=== PATIENT | female | born 1960 | race African-American/Black ===

== ENCOUNTER 2016-07-27 11:08 | Inpatient (IN) | payer MEDICARE, MEDICAID ==
--- NOTE | 2016-07-27 11:20 | ER Document Report ---
ED Medical Screen (RME) - General Chief Complaint: Nausea/Vomiting Stated Complaint: VOMITING Mode of Arrival: Wheelchair Information source: Patient Notes: History presents to the emergency department with reports that she just feels awful. History of stroke and heart attack. Patient Pressure low. Escorted back to bed 1. Reports vomiting since 4:00 this morning. I have greeted and performed a rapid initial assessment of this patient. A comprehensive ED assessment and evaluation of the patient, analysis of test results and completion of the medical decision making process will be conducted by additional ED providers. TRAVEL OUTSIDE OF THE [place] IN LAST 30 DAYS: No - Related Data Allergies/Adverse Reactions: No Known Allergies Allergy (Verified 12/12/15 10:19) Past Medical History - Social History Chew tobacco use (# tins/day): No Frequency of alcohol use: None Drug Abuse: None - Past Medical History Cardiac Medical History: Reports: Hx Heart Attack - 2002, Hx Hypercholesterolemia, Hx Hypertension - HX OF Denies: Hx Coronary Artery Disease Pulmonary Medical History: Denies: Hx Asthma, Hx Bronchitis, Hx COPD, Hx Pneumonia, Hx Tuberculosis Neurological Medical History: Reports: Hx Cerebrovascular Accident - 2002. Denies: Hx Seizures Endocrine Medical History: Reports: Hx Diabetes Mellitus Type 2 Renal/ Medical History: Denies: Hx Peritoneal Dialysis Musculoskeltal Medical History: Reports Hx Arthritis Past Surgical History: Reports: Hx Hysterectomy, Hx Kidney (Renal Surgery) - adrenal gland tumor removed - Immunizations Immunizations up to date: Yes Hx Diphtheria, Pertussis, Tetanus Vaccination: Yes Physical Exam - Vital signs Vitals: Temp Pulse BP Pulse Ox 98.4 F 85 73/54 L 96 07/27/16 11:18 07/27/16 11:18 07/27/16 11:18 07/27/16 11:18 Course - Vital Signs Vital signs: Temp Pulse Resp BP Pulse Ox 98.4 F 85 73/54 L 96 07/27/16 11:18 07/27/16 11:18 07/27/16 11:18 07/27/16 11:18
--- NOTE | 2016-07-27 11:25 | ER Document Report ---
ED General - General Chief Complaint: Nausea/Vomiting Stated Complaint: VOMITING Mode of Arrival: Wheelchair Information source: Patient Notes: 56-year-old female history of hypertension who is on clonidine lovastatin presents with complaints of multiple episodes of vomiting yesterday and today. Patient notes she was too weak to walk today. Denies any pain anywhere except for chronic leg cramping denies any shortness breath difficult to breathing TRAVEL OUTSIDE OF THE [place] IN LAST 30 DAYS: No - HPI Onset: Yesterday Onset/Duration: Worse Quality of pain: Achy Severity: Mild Pain Level: 1 Associated symptoms: Body/muscle aches, Vomiting, Weakness Exacerbated by: Denies Relieved by: Denies Similar symptoms previously: No Recently seen / treated by doctor: No - Related Data Allergies/Adverse Reactions: No Known Allergies Allergy (Verified 12/12/15 10:19) Past Medical History - General Information source: Patient - Social History Smoking Status: Never Smoker Cigarette use (# per day): No Chew tobacco use (# tins/day): No Smoking Education Provided: No Frequency of alcohol use: None Drug Abuse: None Family History: Arthritis, CAD, CVA, DM, Hyperlipidemia, Hypertension, Malignancy, Thyroid Disfunction Patient has suicidal ideation: No Patient has homicidal ideation: No - Past Medical History Cardiac Medical History: Reports: Hx Heart Attack - 2002, Hx Hypercholesterolemia, Hx Hypertension - HX OF Denies: Hx Coronary Artery Disease Pulmonary Medical History: Denies: Hx Asthma, Hx Bronchitis, Hx COPD, Hx Pneumonia, Hx Tuberculosis Neurological Medical History: Reports: Hx Cerebrovascular Accident - 2002. Denies: Hx Seizures Endocrine Medical History: Reports: Hx Diabetes Mellitus Type 2 Renal/ Medical History: Denies: Hx Peritoneal Dialysis Musculoskeltal Medical History: Reports Hx Arthritis Past Surgical History: Reports: Hx Hysterectomy, Hx Kidney (Renal Surgery) - adrenal gland tumor removed - Immunizations Immunizations up to date: Yes Hx Diphtheria, Pertussis, Tetanus Vaccination: Yes Hx Pneumococcal Vaccination: 03/02/12 Review of Systems - Review of Systems Notes: REVIEW OF SYSTEMS: CONSTITUTIONAL : Denies fever, chills, or sweats. Denies recent illness. EENT: Denies eye, ear, throat, or mouth pain or symptoms. Denies nasal or sinus congestion or discharge. Denies throat, tongue, or mouth swelling or difficulty swallowing. CARDIOVASCULAR: Denies chest pain. Denies palpitations or racing or irregular heart beat. Denies ankle edema. RESPIRATORY: Denies cough, cold, or chest congestion. Denies shortness of breath, difficulty breathing, or wheezing. GASTROINTESTINAL: Admits nausea vomiting GENITOURINARY: Denies difficulty urinating, painful urination, burning, frequency, blood in urine, or discharge. FEMALE GENITOURINARY: Denies vaginal bleeding, heavy or abnormal periods, irregular periods. Denies vaginal discharge or odor. MUSCULOSKELETAL: Denies back or neck pain or stiffness. Denies joint pain or swelling. SKIN: Denies rash, lesions or sores. HEMATOLOGIC : Denies easy bruising or bleeding. LYMPHATIC: Denies swollen, enlarged glands. NEUROLOGICAL: Admits to weakness PSYCHIATRIC: Denies anxiety or stress. Denies depression, suicidal ideation, or homicidal ideation. ALL OTHER SYSTEMS REVIEWED AND NEGATIVE. Dictation was performed using [employer] voice recognition software PHYSICAL EXAMINATION: GENERAL: Thin appearing female appears exhausted HEAD: Atraumatic, normocephalic. EYES: Pupils equal round and reactive to light, extraocular movements intact, conjunctiva are normal. ENT: Nares patent, oropharynx clear without exudates. Moist mucous membranes. NECK: Normal range of motion, supple without lymphadenopathy LUNGS: Breath sounds clear to auscultation bilaterally and equal. No wheezes rales or rhonchi. HEART: Regular rate and rhythm without murmurs ABDOMEN: Soft, nontender, nondistended abdomen. No guarding, no rebound. No masses appreciated. Female : deferred Musculoskeletal: Normal range of motion, no pitting or edema. No cyanosis. NEUROLOGICAL: Cranial nerves grossly intact. Normal speech, normal gait. Normal sensory, motor exams PSYCH: Normal mood, normal affect. SKIN: Warm, Dry, normal turgor, no rashes or lesions noted. Physical Exam - Vital signs Vitals: Temp Pulse BP Pulse Ox 98.4 F 85 73/54 L 96 07/27/16 11:18 07/27/16 11:18 07/27/16 11:18 07/27/16 11:18 Course - Re-evaluation Re-evalutation: 07/27/16 11:24 Patient is noted to be quite hypotensive on arrival septic workup pending fluid boluses have been ordered 07/27/16 11:31 Patient desats 86%, chest x-ray pending 07/27/16 13:24 Pt noted to have uti, rocephin started pts bp has improved will admit to [facility] - Vital Signs Vital signs: Temp Pulse Resp BP Pulse Ox 98.4 F 85 16 118/73 100 07/27/16 11:18 07/27/16 11:18 07/27/16 12:45 07/27/16 12:45 07/27/16 12:45 - Laboratory Result Diagrams: 07/27/16 11:38 07/27/16 11:38 Laboratory results interpreted by me: 07/27/16 07/27/16 07/27/16 11:38 11:38 11:38 Hgb 11.0 L Hct 33.6 L RDW 15.2 H D-Dimer 0.89 H Potassium 3.1 L Est GFR (Non-Af Amer) 50 L POC Glucose Urine Protein Urine Urobilinogen Ur Leukocyte Esterase 07/27/16 07/27/16 11:50 12:07 Hgb Hct RDW D-Dimer Potassium Est GFR (Non-Af Amer) POC Glucose 56 L Urine Protein 30 H Urine Urobilinogen 2.0 H Ur Leukocyte Esterase MODERATE H - Diagnostic Test Radiology reviewed: Image reviewed, Reports reviewed - EKG Interpretation by Me EKG shows normal: Sinus rhythm, [place], Intervals, QRS Complexes Critical Care Note - Critical Care Note Total time excluding time spent on procedures (mins): 37 Comments: 37 minutes of critical care time spent in direct contact evaluating and reevaluating the patient, treating symptoms, reviewing labs and studies and speaking with family and consultants excluding any procedures Discharge - Discharge Clinical Impression: Weakness UTI (urinary tract infection) Qualifiers: Urinary tract infection type: acute cystitis Hematuria presence: without hematuria Qualified Code(s): N30.00 - Acute cystitis without hematuria Hypotension Qualifiers: Hypotension type: unspecified hypotension type Qualified Code(s): I95.9 - Hypotension, unspecified Condition: Fair Disposition: ADMITTED INPATIENT Admitting Provider: [facility] Unit Admitted: Telemetry
[2016-07-27] MEDS ORDERED: ONDANSETRON HCL INJ/PF 4 MG/2 ML SDV IV ONE (11:54)
[2016-07-27 12:02] LABS: ABSOLUTE EOSINOPHILS # (AUTO) 0.1 10^3/uL (0.0-0.6); ABSOLUTE LYMPHOCYTES (AUTO) 2.1 10^3/uL (0.5-4.7); ABSOLUTE MONOCYTES (AUTO) 0.6 10^3/uL (0.1-1.4); ABSOLUTE NEUT (AUTO) 4.8 10^3/uL (1.7-8.2); BASOPHILS % (AUTO) 0.3 % (0-2); EOSINOPHILS % (AUTO) 1.3 % (0-6); HEMATOCRIT 33.6 % (36.0-47.0); HGB HCT DIFFERENCE -0.6; LYMPHOCYTES % (AUTO) 27.4 % (13-45); MEAN CORPUSCULAR HEMOGLOBIN 27.6 pg (27.0-33.4); MEAN CORPUSCULAR HGB CONC 32.8 g/dL (32.0-36.0); MEAN CORPUSCULAR VOLUME 84 fl (80-97); MONOCYTES % (AUTO) 7.5 % (3-13); RED BLOOD COUNT 3.98 10^6/uL (3.72-5.28); RED CELL DISTRIBUTION WIDTH 15.2 % (11.5-14.0); SEGMENTED NEUTROPHILS % (AUTO) 63.5 % (42-78); WHITE BLOOD COUNT 7.6 10^3/uL (4.0-10.5)
[2016-07-27] MEDS: NORMAL SALINE 1000 ML 1,000 ML IV PRN ×2 (12:03→12:04)
[2016-07-27 12:04] LABS: VENOUS BLOOD BASE EXCESS 1.9 mmol/L; VENOUS BLOOD HCO3 27.6 mmol/L (20-32); VENOUS BLOOD PCO2 47.2 mmHg (35-63); VENOUS BLOOD PH 7.39 (7.30-7.42)
[2016-07-27] MEDS ORDERED: DEXTROSE 50%-WATER 25 GM/50 ML DISP.SYRIN IV ONE ×2 (12:08→15:26)
[2016-07-27 12:15] LABS: APPEARANCE,URINE CLOUDY; BILIRUBIN,URINE NEGATIVE (NEGATIVE); GLUCOSE, URINE NEGATIVE (NEGATIVE); KETONES,URINE NEGATIVE (NEGATIVE); LEUKOCYTE ESTERASE,URINE MODERATE (NEGATIVE); NITRITE,URINE NEGATIVE (NEGATIVE); PROTEIN,URINE 30 mg/dL (NEGATIVE); URINE SPECIFIC GRAVITY 1.011
[2016-07-27] MEDS ORDERED: CEFTRIAXONE 1 GM/D5W RTU 50 ML IV ONE (12:17)
[2016-07-27 12:22] LABS: ALANINE AMINOTRANSFERASE 19 U/L (9-52); ALBUMIN 3.6 g/dL (3.5-5.0); ALKALINE PHOSPHATASE 65 U/L (38-126); ANION GAP 14 (5-19); ASPARTATE AMINO TRANSFERASE 21 U/L (14-36); BILIRUBIN,TOTAL 0.9 mg/dL (0.2-1.3); BLOOD UREA NITROGEN 13 mg/dL (7-20); CALCIUM 9.5 mg/dL (8.4-10.2); CARBON DIOXIDE 24 mmol/L (22-30); CHLORIDE 107 mmol/L (98-107); CREATINE KINASE 51 U/L (30-135); CREATININE RESULT 1.13 mg/dL (0.52-1.25); GLUCOSE 89 mg/dL (75-110); POTASSIUM 3.1 mmol/L (3.6-5.0); SODIUM 144.5 mmol/L (137-145); TOTAL PROTEIN 6.8 g/dL (6.3-8.2)
[2016-07-27 12:34] LABS: CREATINE KINASE MB < 0.22 ng/mL (<4.55); TROPONIN I < 0.012 ng/mL
[2016-07-27] MEDS ORDERED: POTASSIUM CHLORIDE 10 MEQ TABLET.SA PO ONE (13:27)
[2016-07-27] MEDS ORDERED: IPRATROPIUM/ALBUTEROL 0.5-2.5 MG/3 ML AMPUL NEB PRN (15:49)
[2016-07-27] MEDS ORDERED: NORMAL SALINE 1000 ML 1,000 ML IV PRN (15:49)
[2016-07-27] MEDS ORDERED: ONDANSETRON HCL INJ/PF 4 MG/2 ML SDV IV PRN (15:49)
[2016-07-27] MEDS ORDERED: HYDROCODONE/ACETAMINOPHEN 5-325 MG TABLET PO PRN (15:55)
[2016-07-27] MEDS ORDERED: (PENDING PHARMACY ID) (Zolpidem Tartrate [Ambien] 10 MG) PO PRN (15:55)
--- NOTE | 2016-07-27 17:34 | PDOC H&P ---
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 angiogram was also negative. Patient's potassium was low but the sodium was okay and patient's cortisol level was okay to. Patient's have at this ongoing issue with this hypotension and weakness may be a concern about some [place] crisis but patient' s potassium is low history of high and patient's sodium is okay. His blood sugar was also running low. Patient's also possible urinary tract infections which also contributed about symptoms. Patient's otherwise remains stable when I saw in the floor denied any chest pain no shortness of the breath no abdominal pain no nausea no vomiting. Past Medical History Cardiac Medical History: Reports: Myocardial Infarction - 2002, Hyperlipidema, Hypertension - HX OF Denies: Coronary Artery Disease Pulmonary Medical History: Denies: Asthma, Bronchitis, Chronic Obstructive Pulmonary Disease (COPD), Pneumonia, Tuberculosis Neurological Medical History: Denies: Seizures Endocrine Medical History: Reports: Diabetes Mellitus Type 2, Other Endocrine History Note: jason syndrome and currently on a prednisone and see the entry level automotive technician [employer] [facility] Medical History: Reports: Gastroesophageal Reflux Disease Musculoskeltal Medical History: Reports: Arthritis, Other - History of the lupus and currently see the rheumatology Hematology: Reports: Anemia Past Surgical History Past Surgical History: Reports: Hysterectomy, Other - Right-sided adrenal gland Social History Smoking Status: Never Smoker Frequency of Alcohol Use: None Hx Recreational Drug Use: No Hx Prescription Drug Abuse: No Family History Family History: Reviewed & Not Pertinent, Arthritis, CAD, CVA, DM, Hyperlipidemia, Hypertension, Malignancy, Thyroid Disfunction Parental Family History Reviewed: Yes Children Family History Reviewed: Yes Sibling(s) Family History Reviewed.: Yes Medication/Allergy Home Medications: Atorvastatin Calcium [Lipitor 10 mg Tablet] 10 mg PO DAILY 07/27/16 Clonidine HCl [Catapres 0.1 mg Tablet] 0.1 mg PO QHS 07/27/16 Hydrocodone/Acetaminophen [[place] 5-325 mg Tablet] 1 tab PO BIDP PRN 07/27/16 Prednisone [Deltasone 5 mg Tablet] 5 mg PO QAM 07/27/16 Pregabalin [Lyrica] 50 mg PO TID 07/27/16 Zolpidem Tartrate [Ambien] 10 mg PO HSP PRN 07/27/16 Allergies/Adverse Reactions: No Known Allergies Allergy (Verified 12/12/15 10:19) Review of Systems Constitutional: PRESENT: fatigue, weakness Eyes: ABSENT: as per HPI, visual disturbances, other Nose, Mouth, and Throat: ABSENT: as per HPI, headache(s), mouth pain, sore throat, vertigo, other Cardiovascular: ABSENT: as per HPI, chest pain, dyspnea on exertion, edema, orthropnea, palpitations, other Respiratory: ABSENT: as per HPI, cough, dyspnea, hemoptysis, sputum, other Gastrointestinal: ABSENT: as per HPI, abdominal pain, bloating, coffee ground emesis, constipation, diarrhea, dysphagia, heartburn, hematemesis, hematochezia , melena, nausea, vomiting, other Genitourinary: ABSENT: as per HPI, difficulty urinating, dysuria, hematuria, nocturia, other Musculoskeletal: PRESENT: muscle weakness Integumentary: ABSENT: as per HPI, diaphoresis, erythema, lesions, pruritus, rash, wounds, other Neurological: PRESENT: weakness Psychiatric: PRESENT: depression Physical Exam Vital Signs: Temp Pulse Resp BP Pulse Ox 99.0 F 100 13 132/97 H 97 07/27/16 16:09 07/27/16 16:09 07/27/16 16:09 07/27/16 16:09 07/27/16 16:09 Intake & Output 07/26/16 07/27/16 07/28/16 06:59 06:59 06:59 Weight 63.4 kg General appearance: PRESENT: no acute distress, well-developed, well-nourished Head exam: PRESENT: atraumatic, normocephalic Eye exam: PRESENT: conjunctiva pink, EOMI, PERRLA. ABSENT: scleral icterus Ear exam: PRESENT: normal external ear exam Mouth exam: PRESENT: moist, tongue midline Neck exam: PRESENT: full ROM. ABSENT: carotid bruit, JVD, lymphadenopathy, thyromegaly Respiratory exam: PRESENT: clear to auscultation sam Cardiovascular exam: PRESENT: RRR. ABSENT: diastolic murmur, rubs, systolic murmur Pulses: PRESENT: normal dorsalis pedis pul, +2 pedal pulses bilateral Vascular exam: PRESENT: normal capillary refill GI/Abdominal exam: PRESENT: normal bowel sounds, soft. ABSENT: distended, guarding, mass, organolmegaly, rebound, tenderness Rectal exam: PRESENT: deferred Neurological exam: PRESENT: alert, awake, oriented to person, oriented to place , oriented to time, oriented to situation, CN II-XII grossly intact. ABSENT: motor sensory deficit Psychiatric exam: PRESENT: appropriate affect, normal mood. ABSENT: homicidal ideation, suicidal ideation Skin exam: PRESENT: dry, intact, warm. ABSENT: cyanosis, rash Results Impressions: Chest X-Ray 07/27/16 11:16 IMPRESSION: NO ACUTE RADIOGRAPHIC FINDING IN THE CHEST. Chest/Abdomen CTA 07/27/16 12:15 IMPRESSION: 1. No PE. 2. Chronic interstitial lung disease. Small ground-glass nodules which will need serial followup. Assessment & Plan - Diagnosis (1) Weakness Is this a current diagnosis for this admission?: YesPlan: Possible underlying sepsis with some hormonal issues. Will get the cortisone level and start the patient on hydrocortisone IV and also get the ACTH L also start IV antibiotic and IV fluid and hold the statin (2) Hypotension Qualifiers: Hypotension type: unspecified hypotension type Qualified Code(s): I95.9 - Hypotension, unspecified Is this a current diagnosis for this admission?: YesPlan: Possible underlying infections versus adrenal gland issue. 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 and status post the steroid supplement with start the patient on hydrocortisone and fludrocortisone (5) Systemic lupus erythematosus Is this a current diagnosis for this admission?: YesPlan: Patient used to take the medicines for the lupus but according to the patient she is not taking right now (6) Coronary artery disease Qualifiers: Coronary Disease-Associated Artery/Lesion type: unspecified vessel or lesion type Is this a current diagnosis for this admission?: YesPlan: We did the cardiac enzymes every 63 (7) UTI (urinary tract infection) Qualifiers: Urinary tract infection type: acute cystitis Hematuria presence: without hematuria Qualified Code(s): N30.00 - Acute cystitis without hematuria Is this a current diagnosis for this admission?: YesPlan: The patient on IV antibiotic (8) Sleep apnea Qualifiers: Sleep apnea type: unspecified type Qualified Code(s): G47.30 - Sleep apnea, unspecified Is this a current diagnosis for this admission?: YesPlan: Currently on a C-pap - Time Time Spent: 50 to 70 Minutes Medications reviewed and adjusted accordingly: Yes Anticipated discharge: Home Within: Other - Inpatient Certification Medical Necessity: Significant Comorbidiites Make Outpatient Treatment Too Risky , Need For IV Fluids, Need for IV Antibiotics - Plan Summary Plan Summary: The base on the patient's current symptoms and is sign most likely patient has some adrenal issue . Will supplement the hormones and to the underlying infections and IV fluid
[2016-07-27] MEDS: POTASSI CL 20 MEQ/D5-1/2NS 1L 1000 ML IV PRN (18:20)
[2016-07-27] MEDS: ACETAMINOPHEN 325 MG TABLET PO PRN (18:21)
[2016-07-27] MEDS ORDERED: FLUDROCORTISONE ACETATE 0.1 MG TABLET PO ONE (18:45)
[2016-07-27 19:19] LABS: CREATINE KINASE MB < 0.22 ng/mL (<4.55); TROPONIN I < 0.012 ng/mL
--- NOTE | 2016-07-27 19:29 | EKG REPORT ---
SEVERITY:- ABNORMAL ECG - SINUS RHYTHM ABNORMAL T, CONSIDER ISCHEMIA, LATERAL LEADS : Confirmed by: Lucinda Ma MD 27-Jul-2016 19:28:39
[2016-07-27] MEDS: HYDROCORTISONE SOD SUCCINATE INJ/PF 100 MG/2 ML SDV IV SCH (21:56)
[2016-07-27] MEDS: FAMOTIDINE 20 MG TABLET PO SCH (21:56)
[2016-07-27] MEDS: CEFEPIME 1 GM/D5W RTU 50 ML IV SCH (21:56)
[2016-07-27] MEDS: PREGABALIN 50 MG CAPSULE PO SCH (21:56)
[2016-07-28 00:37] LABS: CREATINE KINASE MB < 0.22 ng/mL (<4.55); TROPONIN I < 0.012 ng/mL
[2016-07-28] MEDS: POTASSI CL 20 MEQ/D5-1/2NS 1L 1000 ML IV PRN (02:38)
[2016-07-28] MEDS: PREGABALIN 50 MG CAPSULE PO SCH ×3 (05:21→21:16)
[2016-07-28] MEDS: HYDROCORTISONE SOD SUCCINATE INJ/PF 100 MG/2 ML SDV IV SCH ×3 (05:21→21:16)
[2016-07-28 08:16] LABS: ABSOLUTE LYMPHOCYTES (AUTO) 0.6 10^3/uL (0.5-4.7); ABSOLUTE MONOCYTES (AUTO) 0.1 10^3/uL (0.1-1.4); ABSOLUTE NEUT (AUTO) 3.2 10^3/uL (1.7-8.2); BASOPHILS % (AUTO) 0.2 % (0-2); HEMATOCRIT 35.2 % (36.0-47.0); HEMOGLOBIN 11.7 g/dL (12.0-15.5); HGB HCT DIFFERENCE -0.1; LYMPHOCYTES % (AUTO) 14.6 % (13-45); MEAN CORPUSCULAR HGB CONC 33.1 g/dL (32.0-36.0); MEAN CORPUSCULAR VOLUME 85 fl (80-97); MONOCYTES % (AUTO) 1.4 % (3-13); RED BLOOD COUNT 4.16 10^6/uL (3.72-5.28); RED CELL DISTRIBUTION WIDTH 15.2 % (11.5-14.0); SEGMENTED NEUTROPHILS % (AUTO) 83.8 % (42-78); WHITE BLOOD COUNT 3.8 10^3/uL (4.0-10.5)
[2016-07-28 08:36] LABS: ANION GAP 9 (5-19); BLOOD UREA NITROGEN 11 mg/dL (7-20); CALCIUM 9.6 mg/dL (8.4-10.2); CARBON DIOXIDE 22 mmol/L (22-30); CHLORIDE 111 mmol/L (98-107); CREATINE KINASE 46 U/L (30-135); CREATININE RESULT 0.88 mg/dL (0.52-1.25); GLUCOSE 168 mg/dL (75-110); MAGNESIUM 1.7 mg/dL (1.6-2.3); SODIUM 141.9 mmol/L (137-145)
[2016-07-28 08:51] LABS: CREATINE KINASE MB < 0.22 ng/mL (<4.55); POTASSIUM 4.5 mmol/L (3.6-5.0); TROPONIN I < 0.012 ng/mL
[2016-07-28] MEDS ORDERED: FLUDROCORTISONE ACETATE 0.1 MG TABLET PO SCH (10:00)
[2016-07-28] MEDS: CEFEPIME 1 GM/D5W RTU 50 ML IV SCH ×2 (10:13→21:15)
[2016-07-28] MEDS: ENOXAPARIN SODIUM INJ 40 MG/0.4 ML DISP.SYRIN SUBCUT SCH (10:15)
[2016-07-28] MEDS: FAMOTIDINE 20 MG TABLET PO SCH ×2 (10:15→21:16)
[2016-07-28] MEDS: DEXTROSE 5%-1/2 NORMAL SALINE 1,000 ML IV PRN (10:51)
--- NOTE | 2016-07-28 10:51 | PDOC PROGRESS REPORT ---
Subjective Progress Note for:: 07/28/16 Subjective:: Patient is doing fair still weakness in the both legs. Patient's MRI was negative for any acute finding except some meningioma. Patient's also put on hydrocortisone and fludrocortisone and currently doing fair. Patient's ACTH is still pending. urine so the gram-negative rods. Also see the pain management and patient's currently on hydrocortisone analytical for the neuropathy and the leg pain. Patient's denied any chest pain no shortness of the breath. Patient' s blood processes remained stable Physical Exam Vital Signs: Temp Pulse Resp BP Pulse Ox 97.6 F 71 14 114/77 98 07/28/16 07:05 07/28/16 09:10 07/28/16 09:10 07/28/16 07:05 07/28/16 09:10 Intake & Output 07/27/16 07/28/16 07/29/16 06:59 06:59 06:59 Intake Total 2327 Output Total 650 Balance 1677 Weight 65.9 kg General appearance: PRESENT: no acute distress, well-developed, well-nourished Head exam: PRESENT: atraumatic, normocephalic Eye exam: PRESENT: conjunctiva pink, EOMI, PERRLA. ABSENT: scleral icterus Ear exam: PRESENT: normal external ear exam Mouth exam: PRESENT: moist, tongue midline Neck exam: PRESENT: full ROM. ABSENT: carotid bruit, JVD, lymphadenopathy, thyromegaly Respiratory exam: PRESENT: clear to auscultation sam Cardiovascular exam: PRESENT: RRR. ABSENT: diastolic murmur, rubs, systolic murmur Pulses: PRESENT: normal dorsalis pedis pul, +2 pedal pulses bilateral Vascular exam: PRESENT: normal capillary refill GI/Abdominal exam: PRESENT: normal bowel sounds, soft. ABSENT: distended, guarding, mass, organolmegaly, rebound, tenderness Rectal exam: PRESENT: deferred Neurological exam: PRESENT: alert, awake, oriented to person, oriented to place , oriented to time, oriented to situation, CN II-XII grossly intact. ABSENT: motor sensory deficit Psychiatric exam: PRESENT: appropriate affect, normal mood. ABSENT: homicidal ideation, suicidal ideation Skin exam: PRESENT: dry, intact, warm. ABSENT: cyanosis, rash Results Laboratory Results: 07/28/16 08:07 07/28/16 08:07 07/28/16 07/28/16 08:07 08:07 WBC 3.8 L RBC 4.16 Hgb 11.7 L Hct 35.2 L MCV 85 MCH 28.0 MCHC 33.1 RDW 15.2 H Plt Count 143 L Seg Neutrophils % 83.8 H Lymphocytes % 14.6 Monocytes % 1.4 L Eosinophils % 0.0 Basophils % 0.2 Absolute Neutrophils 3.2 Absolute Lymphocytes 0.6 Absolute Monocytes 0.1 Absolute Eosinophils 0.0 Absolute Basophils 0.0 Sodium 141.9 Potassium 4.5 D Chloride 111 H Carbon Dioxide 22 Anion Gap 9 BUN 11 Creatinine 0.88 Est GFR ( Amer) > 60 Est GFR (Non-Af Amer) > 60 Glucose 168 H Calcium 9.6 Magnesium 1.7 07/27/16 07/27/16 07/27/16 18:32 18:32 23:55 Creatine Kinase 49 45 CK-MB (CK-2) < 0.22 Troponin I < 0.012 07/27/16 07/28/16 07/28/16 23:55 08:07 08:07 Creatine Kinase 46 CK-MB (CK-2) < 0.22 < 0.22 Troponin I < 0.012 < 0.012 Impressions: Head CT 07/27/16 00:00 IMPRESSION: Findings most consistent with a small meningioma in the right parietal region as noted above. Followup brain CT scan with IV contrast or MRI may be of value for further evaluation. No other significant intracranial abnormalities were identified. Other findings as noted above Head MRI 07/27/16 00:00 IMPRESSION: MINIMAL MICROVASCULAR ISCHEMIC CHANGE. The previously described small dural based mass in the right parietal region is again identified and is most consistent with a small meningioma. Additional sequence post contrast may be of value for confirmation. Other findings as noted above. Chest X-Ray 07/27/16 11:16 IMPRESSION: NO ACUTE RADIOGRAPHIC FINDING IN THE CHEST. Chest/Abdomen CTA 07/27/16 12:15 IMPRESSION: 1. No PE. 2. Chronic interstitial lung disease. Small ground-glass nodules which will need serial followup. Assessment & Plan - Diagnosis (1) Weakness Is this a current diagnosis for this admission?: YesPlan: Patient is currently doing fair to good the physical therapy evaluations continues the current medications. (2) Hypotension Qualifiers: Hypotension type: unspecified hypotension type Qualified Code(s): I95.9 - Hypotension, unspecified Is this a current diagnosis for this admission?: YesPlan: Is currently IV fluid (3) Type II diabetes mellitus Qualifiers: Diabetes mellitus complication status: with unspecified complications Is this a current diagnosis for this admission?: YesPlan: Continues to check before meals and at bedtime currently low will give her D5 1 half normal saline (4) Jason syndrome Plan: Status post adrenal surgery and currently on the steroid supplement (5) Systemic lupus erythematosus Is this a current diagnosis for this admission?: YesPlan: Patient used to take the medicines for the lupus but according to the patient she is not taking right now (6) Coronary artery disease Qualifiers: Coronary Disease-Associated Artery/Lesion type: unspecified vessel or lesion type Is this a current diagnosis for this admission?: YesPlan: We did the cardiac enzymes every 63 (7) UTI (urinary tract infection) Qualifiers: Urinary tract infection type: acute cystitis Hematuria presence: without hematuria Qualified Code(s): N30.00 - Acute cystitis without hematuria Is this a current diagnosis for this admission?: YesPlan: And continues IV antibiotic and wait for the culture and sensitivity (8) Sleep apnea Qualifiers: Sleep apnea type: unspecified type Qualified Code(s): G47.30 - Sleep apnea, unspecified Is this a current diagnosis for this admission?: YesPlan: After the losing the weight patient does not need a C-pap machines anymore - Time Time Spent with patient: 15-24 minutes Medications reviewed and adjusted accordingly: Yes Anticipated discharge: Home Within: Other - Inpatient Certification Medical Necessity: Need For IV Fluids, Need for IV Antibiotics Post Hospital Care: D/C Lathe [place] Documentation - Plan Summary Plan Summary: Continues to IV antibiotic continuous IV fluid and the physical therapy and discussed with the patient and the her daughter about the or the test results and follow-up
[2016-07-28] MEDS: ZOLPIDEM TARTRATE 5 MG TABLET PO PRN (21:19)
[2016-07-29] MEDS: DEXTROSE 5%-1/2 NORMAL SALINE 1,000 ML IV PRN ×3 (02:45→21:59)
[2016-07-29] MEDS: PREGABALIN 50 MG CAPSULE PO SCH ×3 (05:48→22:44)
[2016-07-29] MEDS: HYDROCORTISONE SOD SUCCINATE INJ/PF 100 MG/2 ML SDV IV SCH (05:49)
[2016-07-29 06:13] LABS: ABSOLUTE LYMPHOCYTES (AUTO) 0.9 10^3/uL (0.5-4.7); ABSOLUTE MONOCYTES (AUTO) 0.3 10^3/uL (0.1-1.4); ABSOLUTE NEUT (AUTO) 5.1 10^3/uL (1.7-8.2); BASOPHILS % (AUTO) 0.1 % (0-2); HEMATOCRIT 34.5 % (36.0-47.0); HEMOGLOBIN 11.5 g/dL (12.0-15.5); LYMPHOCYTES % (AUTO) 14.9 % (13-45); MEAN CORPUSCULAR HEMOGLOBIN 27.9 pg (27.0-33.4); MEAN CORPUSCULAR HGB CONC 33.4 g/dL (32.0-36.0); MEAN CORPUSCULAR VOLUME 84 fl (80-97); MONOCYTES % (AUTO) 4.1 % (3-13); RED BLOOD COUNT 4.12 10^6/uL (3.72-5.28); RED CELL DISTRIBUTION WIDTH 15.2 % (11.5-14.0); SEGMENTED NEUTROPHILS % (AUTO) 80.9 % (42-78); WHITE BLOOD COUNT 6.2 10^3/uL (4.0-10.5)
[2016-07-29 06:26] LABS: ANION GAP 13 (5-19); BLOOD UREA NITROGEN 20 mg/dL (7-20); CALCIUM 9.9 mg/dL (8.4-10.2); CARBON DIOXIDE 22 mmol/L (22-30); CHLORIDE 110 mmol/L (98-107); CREATININE RESULT 1.03 mg/dL (0.52-1.25); GLUCOSE 125 mg/dL (75-110); MAGNESIUM 1.8 mg/dL (1.6-2.3); POTASSIUM 3.6 mmol/L (3.6-5.0); SODIUM 145.3 mmol/L (137-145)
[2016-07-29] MEDS: CEFEPIME 1 GM/D5W RTU 50 ML IV SCH ×2 (10:36→21:58)
[2016-07-29] MEDS: FAMOTIDINE 20 MG TABLET PO SCH ×2 (10:36→22:44)
[2016-07-29] MEDS: ENOXAPARIN SODIUM INJ 40 MG/0.4 ML DISP.SYRIN SUBCUT SCH (10:37)
[2016-07-29] MEDS ORDERED: CLONIDINE HCL 0.1 MG TABLET PO ONE (14:30)
[2016-07-29] MEDS: PREDNISONE 10 MG TABLET PO SCH (17:52)
--- NOTE | 2016-07-29 17:56 | PDOC PROGRESS REPORT ---
Subjective Progress Note for:: 07/29/16 Subjective:: Patient is feeling much better still have a weakness patient's blood pressures actually go up and patient urine cultures grew out the bacteria. Patient's denied any chest pain no shortness of the breath no abdominal pain Physical Exam Vital Signs: Temp Pulse Resp BP Pulse Ox 98.0 F 64 19 127/78 H 97 07/29/16 15:21 07/29/16 15:21 07/29/16 15:21 07/29/16 15:21 07/29/16 15:21 Intake & Output 07/28/16 07/29/16 07/30/16 06:59 06:59 06:59 Intake Total 2327 2982 468 Output Total 650 3350 1400 Balance 8083 -019 -842 Weight 65.9 kg 65.2 kg General appearance: PRESENT: no acute distress, well-developed, well-nourished Head exam: PRESENT: atraumatic, normocephalic Eye exam: PRESENT: conjunctiva pink, EOMI, PERRLA. ABSENT: scleral icterus Ear exam: PRESENT: normal external ear exam Mouth exam: PRESENT: moist, tongue midline Neck exam: PRESENT: full ROM. ABSENT: carotid bruit, JVD, lymphadenopathy, thyromegaly Respiratory exam: PRESENT: clear to auscultation sam Cardiovascular exam: PRESENT: RRR. ABSENT: diastolic murmur, rubs, systolic murmur Pulses: PRESENT: normal dorsalis pedis pul, +2 pedal pulses bilateral Vascular exam: PRESENT: normal capillary refill GI/Abdominal exam: PRESENT: normal bowel sounds, soft. ABSENT: distended, guarding, mass, organolmegaly, rebound, tenderness Rectal exam: PRESENT: deferred Neurological exam: PRESENT: alert, awake, oriented to person, oriented to place , oriented to time, oriented to situation, CN II-XII grossly intact. ABSENT: motor sensory deficit Psychiatric exam: PRESENT: appropriate affect, normal mood. ABSENT: homicidal ideation, suicidal ideation Skin exam: PRESENT: dry, intact, warm. ABSENT: cyanosis, rash Results Laboratory Results: 07/29/16 05:20 07/29/16 05:20 07/29/16 07/29/16 05:20 05:20 WBC 6.2 RBC 4.12 Hgb 11.5 L Hct 34.5 L MCV 84 MCH 27.9 MCHC 33.4 RDW 15.2 H Plt Count 148 L Seg Neutrophils % 80.9 H Lymphocytes % 14.9 Monocytes % 4.1 Eosinophils % 0.0 Basophils % 0.1 Absolute Neutrophils 5.1 Absolute Lymphocytes 0.9 Absolute Monocytes 0.3 Absolute Eosinophils 0.0 Absolute Basophils 0.0 Sodium 145.3 H Potassium 3.6 Chloride 110 H Carbon Dioxide 22 Anion Gap 13 BUN 20 Creatinine 1.03 Est GFR ( Amer) > 60 Est GFR (Non-Af Amer) 55 L Glucose 125 H Calcium 9.9 Magnesium 1.8 07/27/16 07/27/16 07/27/16 18:32 18:32 23:55 Creatine Kinase 49 45 CK-MB (CK-2) < 0.22 Troponin I < 0.012 07/27/16 07/28/16 07/28/16 23:55 08:07 08:07 Creatine Kinase 46 CK-MB (CK-2) < 0.22 < 0.22 Troponin I < 0.012 < 0.012 Impressions: Head CT 07/27/16 00:00 IMPRESSION: Findings most consistent with a small meningioma in the right parietal region as noted above. Followup brain CT scan with IV contrast or MRI may be of value for further evaluation. No other significant intracranial abnormalities were identified. Other findings as noted above Head MRI 07/27/16 00:00 IMPRESSION: MINIMAL MICROVASCULAR ISCHEMIC CHANGE. The previously described small dural based mass in the right parietal region is again identified and is most consistent with a small meningioma. Additional sequence post contrast may be of value for confirmation. Other findings as noted above. Chest X-Ray 07/27/16 11:16 IMPRESSION: NO ACUTE RADIOGRAPHIC FINDING IN THE CHEST. Chest/Abdomen CTA 07/27/16 12:15 IMPRESSION: 1. No PE. 2. Chronic interstitial lung disease. Small ground-glass nodules which will need serial followup. Assessment & Plan - Diagnosis (1) Weakness Is this a current diagnosis for this admission?: YesPlan: Actually more improving since will cut down the hydrocortisone IV to the p.o. prednisone (2) Hypotension Qualifiers: Hypotension type: unspecified hypotension type Qualified Code(s): I95.9 - Hypotension, unspecified Is this a current diagnosis for this admission?: YesPlan: All resolved will stop the hydrocortisone and start the p.o. 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 (5) Systemic lupus erythematosus Is this a current diagnosis for this admission?: YesPlan: Patient used to take the medicines for the lupus but according to the patient she is not taking right now (6) Coronary artery disease Qualifiers: Coronary Disease-Associated Artery/Lesion type: unspecified vessel or lesion type Is this a current diagnosis for this admission?: YesPlan: We did the cardiac enzymes every 63 (7) UTI (urinary tract infection) Qualifiers: Urinary tract infection type: acute cystitis Hematuria presence: without hematuria Qualified Code(s): N30.00 - Acute cystitis without hematuria Is this a current diagnosis for this admission?: YesPlan: And continues IV antibiotic and wait for the culture and sensitivity (8) Sleep apnea Qualifiers: Sleep apnea type: unspecified type Qualified Code(s): G47.30 - Sleep apnea, unspecified Is this a current diagnosis for this admission?: Yes - Time Time Spent with patient: 15-24 minutes Medications reviewed and adjusted accordingly: Yes Anticipated discharge: Home Within: Other - Inpatient Certification Medical Necessity: Need for IV Antibiotics Post Hospital Care: D/C Access Database Developer Documentation - Plan Summary Plan Summary: We will DC the IV hormones and start the p.o. and continues IV antibiotic and the physical therapy evaluations
[2016-07-29] MEDS: ZOLPIDEM TARTRATE 5 MG TABLET PO PRN (22:44)
[2016-07-29] MEDS: CLONIDINE HCL 0.1 MG TABLET PO SCH (22:44)
[2016-07-30] MEDS: PREGABALIN 50 MG CAPSULE PO SCH ×3 (05:13→22:52)
[2016-07-30 06:05] LABS: ABSOLUTE LYMPHOCYTES (AUTO) 1.5 10^3/uL (0.5-4.7); ABSOLUTE MONOCYTES (AUTO) 0.4 10^3/uL (0.1-1.4); ABSOLUTE NEUT (AUTO) 3.7 10^3/uL (1.7-8.2); BASOPHILS % (AUTO) 0.2 % (0-2); EOSINOPHILS % (AUTO) 0.1 % (0-6); HEMOGLOBIN 10.5 g/dL (12.0-15.5); HGB HCT DIFFERENCE -0.5; LYMPHOCYTES % (AUTO) 27.2 % (13-45); MEAN CORPUSCULAR HEMOGLOBIN 27.6 pg (27.0-33.4); MEAN CORPUSCULAR HGB CONC 32.7 g/dL (32.0-36.0); MEAN CORPUSCULAR VOLUME 84 fl (80-97); MONOCYTES % (AUTO) 6.4 % (3-13); RED BLOOD COUNT 3.79 10^6/uL (3.72-5.28); RED CELL DISTRIBUTION WIDTH 15.7 % (11.5-14.0); SEGMENTED NEUTROPHILS % (AUTO) 66.1 % (42-78); WHITE BLOOD COUNT 5.6 10^3/uL (4.0-10.5)
[2016-07-30 06:30] LABS: ANION GAP 10 (5-19); BLOOD UREA NITROGEN 20 mg/dL (7-20); CALCIUM 9.2 mg/dL (8.4-10.2); CARBON DIOXIDE 23 mmol/L (22-30); CHLORIDE 111 mmol/L (98-107); CREATININE RESULT 0.73 mg/dL (0.52-1.25); GLUCOSE 125 mg/dL (75-110); MAGNESIUM 1.8 mg/dL (1.6-2.3); SODIUM 144.2 mmol/L (137-145)
[2016-07-30 06:36] LABS: POTASSIUM 2.7 mmol/L (3.6-5.0)
[2016-07-30] MEDS ORDERED: POTASSI CL 20 MEQ/50 ML RIDER 20 MEQ/50 ML RTUPB IV ONE ×2 (06:45→07:00)
[2016-07-30] MEDS ORDERED: POTASSIUM CHLORIDE 10 MEQ TABLET.SA PO ONE (07:00)
[2016-07-30] MEDS: ENOXAPARIN SODIUM INJ 40 MG/0.4 ML DISP.SYRIN SUBCUT SCH (08:05)
[2016-07-30] MEDS: CEFEPIME 1 GM/D5W RTU 50 ML IV SCH ×2 (09:48→22:52)
[2016-07-30] MEDS: FAMOTIDINE 20 MG TABLET PO SCH ×2 (09:50→22:52)
[2016-07-30] MEDS: POTASSIUM CHLORIDE 10 MEQ TABLET.SA PO SCH ×2 (09:50→22:51)
[2016-07-30] MEDS: PREDNISONE 10 MG TABLET PO SCH ×2 (09:50→18:09)
--- NOTE | 2016-07-30 13:40 | PDOC PROGRESS REPORT ---
Subjective Progress Note for:: 07/30/16 Subjective:: Patient is doing much betterPatient's potassium is lowBut other than that patients denied any chest pain denied any shortness of the breath Physical Exam Vital Signs: Temp Pulse Resp BP Pulse Ox 97.8 F 45 L 20 148/85 H 99 07/30/16 12:23 07/30/16 12:23 07/30/16 12:23 07/30/16 12:23 07/30/16 12:23 Intake & Output 07/29/16 07/30/16 07/31/16 06:59 06:59 06:59 Intake Total 2982 2336 600 Output Total 3350 2000 Balance -368 336 600 Weight 65.2 kg 64.3 kg General appearance: PRESENT: no acute distress, well-developed, well-nourished Head exam: PRESENT: atraumatic, normocephalic Eye exam: PRESENT: conjunctiva pink, EOMI, PERRLA. ABSENT: scleral icterus Ear exam: PRESENT: normal external ear exam Mouth exam: PRESENT: moist, tongue midline Neck exam: PRESENT: full ROM. ABSENT: carotid bruit, JVD, lymphadenopathy, thyromegaly Respiratory exam: PRESENT: clear to auscultation sam Cardiovascular exam: PRESENT: RRR. ABSENT: diastolic murmur, rubs, systolic murmur Pulses: PRESENT: normal dorsalis pedis pul, +2 pedal pulses bilateral Vascular exam: PRESENT: normal capillary refill GI/Abdominal exam: PRESENT: normal bowel sounds, soft. ABSENT: distended, guarding, mass, organolmegaly, rebound, tenderness Rectal exam: PRESENT: deferred Neurological exam: PRESENT: alert, awake, oriented to person, oriented to place , oriented to time, oriented to situation, CN II-XII grossly intact. ABSENT: motor sensory deficit Psychiatric exam: PRESENT: appropriate affect, normal mood. ABSENT: homicidal ideation, suicidal ideation Skin exam: PRESENT: dry, intact, warm. ABSENT: cyanosis, rash Results Laboratory Results: 07/30/16 05:51 07/30/16 05:51 07/30/16 07/30/16 05:51 05:51 WBC 5.6 RBC 3.79 Hgb 10.5 L Hct 32.0 L MCV 84 MCH 27.6 MCHC 32.7 RDW 15.7 H Plt Count 140 L Seg Neutrophils % 66.1 Lymphocytes % 27.2 Monocytes % 6.4 Eosinophils % 0.1 Basophils % 0.2 Absolute Neutrophils 3.7 Absolute Lymphocytes 1.5 Absolute Monocytes 0.4 Absolute Eosinophils 0.0 Absolute Basophils 0.0 Sodium 144.2 Potassium 2.7 L* Chloride 111 H Carbon Dioxide 23 Anion Gap 10 BUN 20 Creatinine 0.73 Est GFR ( Amer) > 60 Est GFR (Non-Af Amer) > 60 Glucose 125 H Calcium 9.2 Magnesium 1.8 07/27/16 07/27/16 07/27/16 18:32 18:32 23:55 Creatine Kinase 49 45 CK-MB (CK-2) < 0.22 Troponin I < 0.012 07/27/16 07/28/16 07/28/16 23:55 08:07 08:07 Creatine Kinase 46 CK-MB (CK-2) < 0.22 < 0.22 Troponin I < 0.012 < 0.012 Impressions: Head CT 07/27/16 00:00 IMPRESSION: Findings most consistent with a small meningioma in the right parietal region as noted above. Followup brain CT scan with IV contrast or MRI may be of value for further evaluation. No other significant intracranial abnormalities were identified. Other findings as noted above Head MRI 07/27/16 00:00 IMPRESSION: MINIMAL MICROVASCULAR ISCHEMIC CHANGE. The previously described small dural based mass in the right parietal region is again identified and is most consistent with a small meningioma. Additional sequence post contrast may be of value for confirmation. Other findings as noted above. Chest X-Ray 07/27/16 11:16 IMPRESSION: NO ACUTE RADIOGRAPHIC FINDING IN THE CHEST. Chest/Abdomen CTA 07/27/16 12:15 IMPRESSION: 1. No PE. 2. Chronic interstitial lung disease. Small ground-glass nodules which will need serial followup. Assessment & Plan - Diagnosis (1) Weakness Is this a current diagnosis for this admission?: YesPlan: All improving (2) Hypotension Qualifiers: Hypotension type: unspecified hypotension type Qualified Code(s): I95.9 - Hypotension, unspecified Is this a current diagnosis for this admission?: YesPlan: All resolved (3) Type II diabetes mellitus Qualifiers: Diabetes mellitus complication status: with unspecified complications Is this a current diagnosis for this admission?: YesPlan: Continues to check before meals and at bedtime currently low will give her D5 1 half normal saline (4) Jason syndrome Plan: We discussed with the nursery teacher at [employer] (5) Systemic lupus erythematosus Is this a current diagnosis for this admission?: YesPlan: Patient used to take the medicines for the lupus but according to the patient she is not taking right now (6) Coronary artery disease Qualifiers: Coronary Disease-Associated Artery/Lesion type: unspecified vessel or lesion type Is this a current diagnosis for this admission?: YesPlan: We did the cardiac enzymes every 63 (7) UTI (urinary tract infection) Qualifiers: Urinary tract infection type: acute cystitis Hematuria presence: without hematuria Qualified Code(s): N30.00 - Acute cystitis without hematuria Is this a current diagnosis for this admission?: YesPlan: And continues IV antibiotic and wait for the culture and sensitivity (8) Sleep apnea Qualifiers: Sleep apnea type: unspecified type Qualified Code(s): G47.30 - Sleep apnea, unspecified Is this a current diagnosis for this admission?: Yes - Time Time Spent with patient: 15-24 minutes Medications reviewed and adjusted accordingly: Yes Anticipated discharge: Home Within: within 24 hours - Inpatient Certification Medical Necessity: Need for IV Antibiotics Post Hospital Care: D/C Certified Lactation Educator Documentation - Plan Summary Plan Summary: Continues to IV antibiotic will stop the IV fluid and continues to monitor the patient's
--- NOTE | 2016-07-30 14:37 | Physician Advisory Note ---
Physician Advisor ProgressNote .: Pursuant to the plan for [facility], I have reviewed the medical record for this patient. Physician Advisor Statement: Masterful pt management. Just need documentation to show how sick this pt truly was. Possible documentation opportunities if attending agrees: 1. "acute proximal muscle weakness, likely due to adrenal/Addisonian crisis" 2. "mild hypernatremia on 07/29, likely due to " 3. "athersclerotic cerebrovascular disease" (+ MRI microvascular ischemic change) 4. "Medical necessity" - please continue to document each day how pt is different from baseline, especially when pt is each day improving - so auditors can understand why pt still needs to be in hospital. 5. "chronic interstitial lung dz by CT" 6. Does pt still need an order for PT consult? As always, if concerned about any unstable VS or abnormal labs, please comment on them & note what doing about them, & please document each day the potential clinical problems you are concerned could occur if pt not kept in hospital for tx at this time. Discussion: 56yo female w/ chronic co-morbidities including HTN, CAD/IL, CVA 2002 w/___ residual, Jason dz -?Rt adrenalectomy/chronic prednisone tx 5mg, SLE, MELVA no longer needing CPAP after wt loss, ?CKD stage 1-2 - presented 07/27 AM to ED w/weakness getting so bad she couldn't walk, N/V, hypotension, appearing thin & exhausted per ED dr, (+) systolic BPs 60s-70s, O2 sats dropping to 86%, (+)UTI. HR 85, no fever. WBC 7.6, Hgb 11.0, K 3.1, D-dimer 0.89, CXR neg, CTA = chronic ILD + small nodules needing f/u, TSH 6.08. ED dr gave 2L of bolus IVF, D50, Rocephin, KCL 40, IV Zofran, ordered VBG, CTA, BC, cortisol & lactate levels Attending ordered IVF @125, IV cefepime, prn Duonebs, prednisone increased dose of 10mg bid, IV hydrocortisone 50 q8h, I/O, ACTH, CT & MRI head, serial cardiac enzymes, f/u labs, VS q4h, daily wts, held statin in case it could be affecting muscles. Status: Pt with mult co-morbidities including Jason's dz tx'd by Rt adrenalectomy with subsequent steroid tx long-term, came in w/N/V, body aches/myalgias, proximal muscle weakness, severe hypotension, in addition to UTI. Initially concerning for possible sepsis given severity of hypotension, but without add'l findings such as tachycardia, high lactate, & leukocytosis, that dx appears to have been ruled out. Pt then had repeated hypoglycemia in the 50s that PM. Attending mentioned possibility of Addisonian crisis in H&P but afterwards simply documented "weakness" as principal dx. However, he tested for cortisol & ACTH, tx'd with IV hydrocortisone & po fludrocortisone, & pt's weakness improved with this. When contacted today, attending confirms his impression of principal dx this adm was Addisonian crisis, causing the severe hypotension & proximal muscle weakness, etc. Addisonian crisis requires copious IVF to correct hypotension & intravascular volume depletion with careful monitoring of BP, fluid status, serum Na & K levels, with glucose as needed to correct hypoglycemia, yet with care to avoid worsening hyponatremia, while underlying cause for crisis is sought & tx'd. Persistent fatigue is smptomatic of insufficient steroid hormone replacement. Mineralocorticoid dose must be adjusted based on BP & serum K. Tx of Addisonian Crisis usually requires at least 2-3 days to stabilize & then be able to change to po steroid dosing . Infection, such as in this case likely the UTI, can stimulate the crisis. On 07/28, attending documented continued weakness, reported continued need for IVF though cut dose to 75/hr. WBC dropped to 3.8. K maintained at 4.5. Continued IV steroids & watching for ur cx results w/GNR. On 07/29, pt feeling much better but still w/significant weakness, now with hypernatremia & relative hypokalemia, WBC 6.2. Attending ordered "now" dose of clonidine due to unstable HTN, ajdusted steroids to po dosing, continued IV abx for UTI awaiting cx results. On 07/30,pt has developed severe hypokalemia of 2.7, & significant bradycardia in the 40,s on 07/30 - when HR had been 60s-80 prior to this. Attending has ordered KCL po & IV on 07/30. Ur cx = E.coli sensitive to cephalosporins. Stopping IVF. Needing to continue to monitor pt's labs closely as mentioned above, especially with relative hypoglycemia developing again this AM to 79 since stopping IV steroids. Tx in inpatient hospital setting this admission medically reasonable & necessary to protect pt's health, safety, & medical condition. Appropriate for Inpt status as of initial Inpt order, & remains appropriate for Inpt. Thanks for your help with documentation accuracy/specificity improvement! Jaimie Owens MD [facility] Physician Advisor, Fellow of Hospital Medicine
[2016-07-30] MEDS: CLONIDINE HCL 0.1 MG TABLET PO SCH (22:51)
[2016-07-30] MEDS: ZOLPIDEM TARTRATE 5 MG TABLET PO PRN (22:52)
[2016-07-31] MEDS: PREGABALIN 50 MG CAPSULE PO SCH ×3 (05:08→21:52)
[2016-07-31 06:43] LABS: ABSOLUTE LYMPHOCYTES (AUTO) 2.2 10^3/uL (0.5-4.7); ABSOLUTE MONOCYTES (AUTO) 0.4 10^3/uL (0.1-1.4); ABSOLUTE NEUT (AUTO) 4.3 10^3/uL (1.7-8.2); BASOPHILS % (AUTO) 0.1 % (0-2); EOSINOPHILS % (AUTO) 0.2 % (0-6); HEMATOCRIT 35.4 % (36.0-47.0); HEMOGLOBIN 11.8 g/dL (12.0-15.5); LYMPHOCYTES % (AUTO) 32.3 % (13-45); MEAN CORPUSCULAR HGB CONC 33.3 g/dL (32.0-36.0); MEAN CORPUSCULAR VOLUME 84 fl (80-97); RED BLOOD COUNT 4.21 10^6/uL (3.72-5.28); RED CELL DISTRIBUTION WIDTH 15.2 % (11.5-14.0); SEGMENTED NEUTROPHILS % (AUTO) 61.4 % (42-78); WHITE BLOOD COUNT 6.9 10^3/uL (4.0-10.5)
[2016-07-31 07:03] LABS: ANION GAP 11 (5-19); BLOOD UREA NITROGEN 19 mg/dL (7-20); CALCIUM 9.7 mg/dL (8.4-10.2); CARBON DIOXIDE 23 mmol/L (22-30); CHLORIDE 108 mmol/L (98-107); CREATININE RESULT 0.82 mg/dL (0.52-1.25); GLUCOSE 96 mg/dL (75-110)
[2016-07-31 07:20] LABS: POTASSIUM 3.8 mmol/L (3.6-5.0)
[2016-07-31] MEDS: ENOXAPARIN SODIUM INJ 40 MG/0.4 ML DISP.SYRIN SUBCUT SCH (07:41)
--- NOTE | 2016-07-31 09:11 | PDOC PROGRESS REPORT ---
Subjective Progress Note for:: 07/31/16 Subjective:: pt is doing much better pt hr is run lower end and go upto 30 pt denied any dizziness no chest pain no sob Physical Exam Vital Signs: Temp Pulse Resp BP Pulse Ox 98.2 F 44 L 17 154/98 H 100 07/31/16 07:25 07/31/16 07:25 07/31/16 07:25 07/31/16 07:25 07/31/16 07:25 Intake & Output 07/30/16 07/31/16 08/01/16 06:59 06:59 06:59 Intake Total 2336 2910 Output Total 1999 Balance 336 2910 Weight 64.3 kg 63.9 kg General appearance: PRESENT: no acute distress, well-developed, well-nourished Head exam: PRESENT: atraumatic, normocephalic Eye exam: PRESENT: conjunctiva pink, EOMI, PERRLA. ABSENT: scleral icterus Ear exam: PRESENT: normal external ear exam Mouth exam: PRESENT: moist, tongue midline Neck exam: PRESENT: full ROM. ABSENT: carotid bruit, JVD, lymphadenopathy, thyromegaly Respiratory exam: PRESENT: clear to auscultation sam Cardiovascular exam: PRESENT: bradycardia, RRR. ABSENT: diastolic murmur, rubs , systolic murmur Pulses: PRESENT: normal dorsalis pedis pul, +2 pedal pulses bilateral Vascular exam: PRESENT: normal capillary refill GI/Abdominal exam: PRESENT: normal bowel sounds, soft. ABSENT: distended, guarding, mass, organolmegaly, rebound, tenderness Rectal exam: PRESENT: deferred Neurological exam: PRESENT: alert, awake, oriented to person, oriented to place , oriented to time, oriented to situation, CN II-XII grossly intact. ABSENT: motor sensory deficit Psychiatric exam: PRESENT: appropriate affect, normal mood. ABSENT: homicidal ideation, suicidal ideation Skin exam: PRESENT: dry, intact, warm. ABSENT: cyanosis, rash Results Laboratory Results: 07/31/16 05:39 07/31/16 05:39 07/31/16 07/31/16 07/31/16 05:39 05:39 05:39 WBC 6.9 RBC 4.21 Hgb 11.8 L Hct 35.4 L MCV 84 MCH 28.0 MCHC 33.3 RDW 15.2 H Plt Count 161 Seg Neutrophils % 61.4 Lymphocytes % 32.3 Monocytes % 6.0 Eosinophils % 0.2 Basophils % 0.1 Absolute Neutrophils 4.3 Absolute Lymphocytes 2.2 Absolute Monocytes 0.4 Absolute Eosinophils 0.0 Absolute Basophils 0.0 Sodium 142.0 Potassium 3.8 D Chloride 108 H Carbon Dioxide 23 Anion Gap 11 BUN 19 Creatinine 0.82 Est GFR ( Amer) > 60 Est GFR (Non-Af Amer) > 60 Glucose 96 Calcium 9.7 TSH 2.75 07/27/16 07/27/16 07/27/16 18:32 18:32 23:55 Creatine Kinase 49 45 CK-MB (CK-2) < 0.22 Troponin I < 0.012 07/27/16 07/28/16 07/28/16 23:55 08:07 08:07 Creatine Kinase 46 CK-MB (CK-2) < 0.22 < 0.22 Troponin I < 0.012 < 0.012 Impressions: Head CT 07/27/16 00:00 IMPRESSION: Findings most consistent with a small meningioma in the right parietal region as noted above. Followup brain CT scan with IV contrast or MRI may be of value for further evaluation. No other significant intracranial abnormalities were identified. Other findings as noted above Head MRI 07/27/16 00:00 IMPRESSION: MINIMAL MICROVASCULAR ISCHEMIC CHANGE. The previously described small dural based mass in the right parietal region is again identified and is most consistent with a small meningioma. Additional sequence post contrast may be of value for confirmation. Other findings as noted above. Chest X-Ray 07/27/16 11:16 IMPRESSION: NO ACUTE RADIOGRAPHIC FINDING IN THE CHEST. Chest/Abdomen CTA 07/27/16 12:15 IMPRESSION: 1. No PE. 2. Chronic interstitial lung disease. Small ground-glass nodules which will need serial followup. Assessment & Plan - Diagnosis (1) Weakness Is this a current diagnosis for this admission?: YesPlan: All improving (2) Hypotension Qualifiers: Hypotension type: unspecified hypotension type Qualified Code(s): I95.9 - Hypotension, unspecified Is this a current diagnosis for this admission?: YesPlan: all resolved (3) Type II diabetes mellitus Qualifiers: Diabetes mellitus complication status: with unspecified complications Is this a current diagnosis for this admission?: YesPlan: Continues to check before meals and at bedtime currently low will give her D5 1 half normal saline (4) Raymond syndrome Plan: We discussed with the stockroom supervisor at [employer] (5) Systemic lupus erythematosus Is this a current diagnosis for this admission?: YesPlan: Patient used to take the medicines for the lupus but according to the patient she is not taking right now (6) Coronary artery disease Qualifiers: Coronary Disease-Associated Artery/Lesion type: unspecified vessel or lesion type Is this a current diagnosis for this admission?: YesPlan: We did the cardiac enzymes every 63 (7) UTI (urinary tract infection) Qualifiers: Urinary tract infection type: acute cystitis Hematuria presence: without hematuria Qualified Code(s): N30.00 - Acute cystitis without hematuria Is this a current diagnosis for this admission?: YesPlan: And continues IV antibiotic and wait for the culture and sensitivity (8) Sleep apnea Qualifiers: Sleep apnea type: unspecified type Qualified Code(s): G47.30 - Sleep apnea, unspecified Is this a current diagnosis for this admission?: YesPlan: After the losing the weight patient does not need a C-pap machines anymore (9) Addisonian crisis Is this a current diagnosis for this admission?: YesPlan: As per discussed with the stockroom supervisor in [place] Dr[address] Leo and does suggest that discharge the patient with the prednisone 10 mg and follow as outpatients in the 1 or 2 weeks and patient is to understand about the sickness formula to double the prednisone when she gets sick and continues to the current medications. (10) Bradycardia Is this a current diagnosis for this admission?: YesPlan: stop clonidine start norvasc check tsh consult cardilogy
[2016-07-31] MEDS: POTASSIUM CHLORIDE 10 MEQ TABLET.SA PO SCH ×2 (09:23→21:52)
[2016-07-31] MEDS: PREDNISONE 10 MG TABLET PO SCH ×2 (09:26→17:42)
[2016-07-31] MEDS: FAMOTIDINE 20 MG TABLET PO SCH ×2 (09:27→21:52)
[2016-07-31] MEDS: AMLODIPINE BESYLATE 5 MG TABLET PO SCH (09:27)
[2016-07-31] MEDS: CEFEPIME 1 GM/D5W RTU 50 ML IV SCH ×2 (09:29→21:51)
[2016-07-31] MEDS: ACETAMINOPHEN 325 MG TABLET PO PRN (21:59)
[2016-08-01 04:55] LABS: ANION GAP 11 (5-19); BLOOD UREA NITROGEN 22 mg/dL (7-20); CALCIUM 9.4 mg/dL (8.4-10.2); CARBON DIOXIDE 21 mmol/L (22-30); CHLORIDE 109 mmol/L (98-107); GLUCOSE 91 mg/dL (75-110); POTASSIUM 4.6 mmol/L (3.6-5.0); SODIUM 141.1 mmol/L (137-145)
[2016-08-01] MEDS: PREGABALIN 50 MG CAPSULE PO SCH (05:07)
[2016-08-01] MEDS: POTASSIUM CHLORIDE 10 MEQ TABLET.SA PO SCH (09:06)
[2016-08-01] MEDS: AMLODIPINE BESYLATE 5 MG TABLET PO SCH (09:06)
[2016-08-01] MEDS: PREDNISONE 10 MG TABLET PO SCH (09:06)
[2016-08-01] MEDS: FAMOTIDINE 20 MG TABLET PO SCH (09:07)
[2016-08-01] MEDS: CEFEPIME 1 GM/D5W RTU 50 ML IV SCH (09:07)
[2016-08-01] MEDS: ENOXAPARIN SODIUM INJ 40 MG/0.4 ML DISP.SYRIN SUBCUT SCH (09:07)
[2016-08-01 09:12] VITALS: BP 132/97
--- NOTE | 2016-08-01 12:47 | PDOC DISCHARGE SUMMARY ---
General - Admit/Disc Date/PCP Admission Date/Primary Care Provider: 07/27/16 15:49 SHAHLA YEUNG MD Discharge Date: 08/01/16 - Discharge Diagnosis (1) Weakness Is this a current diagnosis for this admission?: YesSummary: Most likely from the [place] crisis and is all resolvedAs per discussed with the electrician supervisor substation's continues the current medications (2) Hypotension Is this a current diagnosis for this admission?: YesSummary: From [place] crisis currently resolved (3) Type II diabetes mellitus Is this a current diagnosis for this admission?: YesSummary: Hypoglycemia is all resolved (4) [place] syndrome Summary: Follow-up with the electrician supervisor substation and [employer] (5) Systemic lupus erythematosus Is this a current diagnosis for this admission?: YesSummary: Stable (6) Coronary artery disease Is this a current diagnosis for this admission?: YesSummary: Stable (7) UTI (urinary tract infection) Is this a current diagnosis for this admission?: YesSummary: Start the patient on the p.o. antibiotic Keflex (8) Sleep apnea Is this a current diagnosis for this admission?: YesSummary: She does not need a CPAP machines were loose to evaluate (9) [place] crisis Is this a current diagnosis for this admission?: YesSummary: All results now in a p.o. steroid and as per discussed with the electrician supervisor substation probably next week start 5 mg prednisone (10) Bradycardia Is this a current diagnosis for this admission?: YesSummary: Currently all stable patient's evaluated in the [facility] cardiology last year and no need for any pacemaker and discussed with Dr. Ma and suggest events monitor and stop the clonidine and start the patient on Norvasc for the blood pressure - Additional Information Discharge Diet: Cardiac, Diabetic Discharge Activity: Activity As Tolerated Home Medications: Atorvastatin Calcium [Lipitor 10 mg Tablet] 10 mg PO DAILY 07/27/16 Hydrocodone/Acetaminophen [Vida 5-325 mg Tablet] 1 tab PO BIDP PRN 07/27/16 Pregabalin [Lyrica] 50 mg PO TID 07/27/16 Zolpidem Tartrate [Ambien] 10 mg PO HSP PRN 07/27/16 Amlodipine Besylate [Norvasc 5 mg Tablet] 5 mg PO DAILY #30 tablet 08/01/16 Cephalexin Monohydrate [Keflex 500 mg Capsule] 500 mg PO BID #14 capsule Potassium Chloride [Klor-Con 10 Meq Tablet.sa] 20 meq PO DAILY #30 tablet.sa 07/19 Prednisone [Deltasone 10 mg Tablet] 10 mg PO BID #30 tablet 08/01/16 History of Present Illness History of Present Illness: MARIE GARCIA is a 56 year old female This is a 56-year-old female with a significant history of the type II diabetes mellitus with is currently not taking any medications also history of yakov disese and long-term steroid therapy and currently see a [employer] electrician supervisor substation and also history of the hypertensin hyperlipidemia history of the TIA and also history of for chronic kidney disease and multiple other comorbidity basically came to the emergency department with a complaint of for leg weakness that happened suddenly without any other symptoms and patient's in the ER blood pressure was in a 60 and 70 systolic and patient was given a couple of lit fluid and close to up to the [address] angiogram was also negative. Patient's potassium was low but the sodium was okay and patient's cortisol level was okay to. Patient's have at this ongoing issue with this hypotension and weakness may be a concern about some [place] crisis but patient' s potassium is low history of high and patient's sodium is okay. His blood sugar was also running low. Patient's also possible urinary tract infections which also contributed about symptoms. Patient's otherwise remains stable when I saw in the floor denied any chest pain no shortness of the breath no abdominal pain no nausea no vomiting. Hospital Course Hospital Course: This is a 56-year-old femalePresents in the emergency department with the hypotension and hypoglycemia and acute leg weakness and unable to walk which is very consistent with the [place] crisis and patient was given IV hydrocortisone and IV fluid and patient's response very well with that. Patients also have a urinary tract infections which also resolved. Patient's otherwise doing fair and patient is discharged home with the stable conditions. Patient also have a bradycardia and the clonidine was stopped and Dr. Ma was consulted. Physical Exam Vital Signs: Temp Pulse Resp BP Pulse Ox 97.9 F 54 L 18 132/97 H 100 08/01/16 09:10 08/01/16 09:10 08/01/16 09:10 08/01/16 09:10 08/01/16 09:10 Intake & Output 07/31/16 08/01/16 08/02/16 06:59 06:59 06:59 Intake Total 2910 1510 Output Total 700 Balance 2910 810 Weight 63.9 kg 61 kg General appearance: PRESENT: no acute distress, well-developed, well-nourished Head exam: PRESENT: atraumatic, normocephalic Eye exam: PRESENT: conjunctiva pink, EOMI, PERRLA. ABSENT: scleral icterus Ear exam: PRESENT: normal external ear exam Mouth exam: PRESENT: moist, tongue midline Neck exam: PRESENT: full ROM. ABSENT: carotid bruit, JVD, lymphadenopathy, thyromegaly Respiratory exam: PRESENT: clear to auscultation sam Cardiovascular exam: PRESENT: RRR. ABSENT: diastolic murmur, rubs, systolic murmur Pulses: PRESENT: normal dorsalis pedis pul, +2 pedal pulses bilateral Vascular exam: PRESENT: normal capillary refill GI/Abdominal exam: PRESENT: normal bowel sounds, soft. ABSENT: distended, guarding, mass, organolmegaly, rebound, tenderness Rectal exam: PRESENT: deferred Neurological exam: PRESENT: alert, awake, oriented to person, oriented to place , oriented to time, oriented to situation, CN II-XII grossly intact. ABSENT: motor sensory deficit Psychiatric exam: PRESENT: appropriate affect, normal mood. ABSENT: homicidal ideation, suicidal ideation Skin exam: PRESENT: dry, intact, warm. ABSENT: cyanosis, rash Results Laboratory Results: 07/31/16 05:39 08/01/16 03:44 08/01/16 03:44 Sodium 141.1 Potassium 4.6 Chloride 109 H Carbon Dioxide 21 L Anion Gap 11 BUN 22 H Creatinine 0.70 Est GFR ( Amer) > 60 Est GFR (Non-Af Amer) > 60 Glucose 91 Calcium 9.4 07/27/16 07/27/16 07/27/16 18:32 18:32 23:55 Creatine Kinase 49 45 CK-MB (CK-2) < 0.22 Troponin I < 0.012 07/27/16 07/28/16 07/28/16 23:55 08:07 08:07 Creatine Kinase 46 CK-MB (CK-2) < 0.22 < 0.22 Troponin I < 0.012 < 0.012 Impressions: Head CT 07/27/16 00:00 IMPRESSION: Findings most consistent with a small meningioma in the right parietal region as noted above. Followup brain CT scan with IV contrast or MRI may be of value for further evaluation. No other significant intracranial abnormalities were identified. Other findings as noted above Head MRI 07/27/16 00:00 IMPRESSION: MINIMAL MICROVASCULAR ISCHEMIC CHANGE. The previously described small dural based mass in the right parietal region is again identified and is most consistent with a small meningioma. Additional sequence post contrast may be of value for confirmation. Other findings as noted above. Chest X-Ray 07/27/16 11:16 IMPRESSION: NO ACUTE RADIOGRAPHIC FINDING IN THE CHEST. Chest/Abdomen CTA 07/27/16 12:15 IMPRESSION: 1. No PE. 2. Chronic interstitial lung disease. Small ground-glass nodules which will need serial followup. Plan Time Spent: Greater than 30 Minutes
== END 2016-08-01 10:06 | disposition home or self-care (01) | DRG 644 ==
LOC: ER 11:08 → EH 13:31 → UNDOADMIN 13:31 → 3W 15:45 → EH 15:45 → 3W 15:49 → EH 15:49
PROVIDERS: ADMIT Family Medicine; ATTEND Family Medicine
DX: E27.2 Addisonian crisis (principal); E24.9 Cushing's syndrome, unspecified; N30.00 Acute cystitis without hematuria; M32.9 Systemic lupus erythematosus, unspecified; I12.9 Hypertensive chronic kidney disease with stage 1 through stage 4 chronic kidney disease, or unspecified chronic kidney disease; E11.649 Type 2 diabetes mellitus with hypoglycemia without coma; I25.10 Atherosclerotic heart disease of native coronary artery without angina pectoris; E11.22 Type 2 diabetes mellitus with diabetic chronic kidney disease; G47.30 Sleep apnea, unspecified; R00.1 Bradycardia, unspecified; I95.89 Other hypotension; E78.5 Hyperlipidemia, unspecified; M19.90 Unspecified osteoarthritis, unspecified site; N18.9 Chronic kidney disease, unspecified; D64.9 Anemia, unspecified; Z86.73 Personal history of transient ischemic attack (TIA), and cerebral infarction without residual deficits; I25.2 Old myocardial infarction; Z90.710 Acquired absence of both cervix and uterus; Z79.52 Long term (current) use of systemic steroids; Z79.899 Other long term (current) drug therapy; Z82.49 Family history of ischemic heart disease and other diseases of the circulatory system; Z82.3 Family history of stroke; Z83.3 Family history of diabetes mellitus
CPT/HCPCS: 36415; 70450; 70551; 71010; 71275; 80048; 80053; 81001; 82024; 82533; 82550; 82553; 82803; 82962; 83605; 83735; 84443; 84484; 85025; 85379; 87040; 87086; 87088; 87186; 87804; 93005; 93010; 96361; 96365; 96375; 99291; J0692; J0696; J1650; J1720; J2405; J3480; J3490; J7030; J7512

== ENCOUNTER → 2016-08-19 | Outpatient (CLI) | payer MEDICAID, MEDICARE | LOC: WI 08:57 | PROVIDERS: ATTEND Family Medicine | DX: Z12.31 Encounter for screening mammogram for malignant neoplasm of breast (principal) | CPT/HCPCS: 77067; G0202 ==

== ENCOUNTER → 2016-09-12 | Outpatient (CLI) | payer MEDICARE ==
[2016-09-12 11:34] LABS: ABSOLUTE EOSINOPHILS # (AUTO) 0.1 10^3/uL (0.0-0.6); ABSOLUTE LYMPHOCYTES (AUTO) 1.8 10^3/uL (0.5-4.7); ABSOLUTE MONOCYTES (AUTO) 0.4 10^3/uL (0.1-1.4); ABSOLUTE NEUT (AUTO) 2.3 10^3/uL (1.7-8.2); BASOPHILS % (AUTO) 0.6 % (0-2); EOSINOPHILS % (AUTO) 2.8 % (0-6); HEMATOCRIT 39.2 % (36.0-47.0); HEMOGLOBIN 12.9 g/dL (12.0-15.5); HGB HCT DIFFERENCE -0.5; LYMPHOCYTES % (AUTO) 39.4 % (13-45); MEAN CORPUSCULAR HEMOGLOBIN 28.2 pg (27.0-33.4); MEAN CORPUSCULAR HGB CONC 32.8 g/dL (32.0-36.0); MEAN CORPUSCULAR VOLUME 86 fl (80-97); MONOCYTES % (AUTO) 8.8 % (3-13); RED BLOOD COUNT 4.56 10^6/uL (3.72-5.28); RED CELL DISTRIBUTION WIDTH 15.2 % (11.5-14.0); SEGMENTED NEUTROPHILS % (AUTO) 48.4 % (42-78); WHITE BLOOD COUNT 4.7 10^3/uL (4.0-10.5)
[2016-09-12 12:00] LABS: ALANINE AMINOTRANSFERASE 47 U/L (9-52); ALKALINE PHOSPHATASE 74 U/L (38-126); ANION GAP 13 (5-19); ASPARTATE AMINO TRANSFERASE 35 U/L (14-36); BILIRUBIN,DIRECT 0.1 mg/dL (0.0-0.4); BILIRUBIN,TOTAL 0.5 mg/dL (0.2-1.3); BLOOD UREA NITROGEN 23 mg/dL (7-20); CARBON DIOXIDE 22 mmol/L (22-30); CHLORIDE 109 mmol/L (98-107); CREATININE RESULT 0.97 mg/dL (0.52-1.25); GLUCOSE 75 mg/dL (75-110); TOTAL PROTEIN 7.1 g/dL (6.3-8.2)
== END ==
LOC: OD 10:54
PROVIDERS: ATTEND Physician Assistant
DX: M54.5 Low back pain (principal)
CPT/HCPCS: 36415; 80053; 82533; 85025

== ENCOUNTER → 2016-09-16 | Outpatient (CLI) | payer MEDICARE, MEDICAID | LOC: RAD 09:40 | PROVIDERS: ATTEND Physician Assistant | DX: N30.01 Acute cystitis with hematuria (principal); E24.9 Cushing's syndrome, unspecified; N18.9 Chronic kidney disease, unspecified; Z87.448 Personal history of other diseases of urinary system; Z86.39 Personal history of other endocrine, nutritional and metabolic disease | CPT/HCPCS: 76770 ==

== ENCOUNTER → 2017-04-17 | Outpatient (CLI) | payer MEDICARE ==
--- NOTE | 2017-04-18 09:33 | EKG REPORT ---
SEVERITY:- ABNORMAL ECG - SINUS RHYTHM PROBABLE LVH WITH SECONDARY REPOL ABNRM : Confirmed by: Yoli Hoffman 18-Apr-2017 09:32:25
== END ==
LOC: OD 12:01
PROVIDERS: ATTEND Physician Assistant
DX: R00.1 Bradycardia, unspecified (principal)
CPT/HCPCS: 93005; 93010

== ENCOUNTER 2017-09-24 18:31 | Emergency (ER) | payer MEDICARE, MEDICAID ==
[2017-09-24] MEDS ORDERED: TETRACAINE HCL 0.5% OPH SOLN 2 ML OU ONE (19:05)
--- NOTE | 2017-09-24 19:43 | ER Document Report ---
HPI - HPI Patient complains to provider of: heavy eyelids Onset: This afternoon Pain Level: 2 Context: 57 yo female diabetic c/o onset of sensation that air was blowing on both eyebals at 1200 today, then driving home she felt like her eyelids were very heavy, photosensitive, trouble keeping them open. Then they looked red this afternoon. No drainage. 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 No hx glaucoma, non contact lense weared. No swelling. Has been crying because she doesn't like being sick. here with spouse and daughter who at first did not think that her eyes were red, but then realized they were. Associated Symptoms: None Exacerbated by: Denies Relieved by: Denies Similar symptoms previously: No Recently seen / treated by doctor: No - ROS ROS below otherwise negative: Yes Systems Reviewed and Negative: Yes All other systems reviewed and negative - REPRODUCTIVE Reproductive: DENIES: : Past Medical History - General Information source: Patient - Social History Smoking Status: Never Smoker Frequency of alcohol use: None Drug Abuse: None Lives with: Family Family History: Reviewed & Not Pertinent, Arthritis, CAD, CVA, DM, Hyperlipidemia, Hypertension, Malignancy, Thyroid Disfunction - Past Medical History Cardiac Medical History: Reports: Hx Heart Attack - 2002, Hx Hypercholesterolemia, Hx Hypertension - HX OF Neurological Medical History: Reports: Hx Cerebrovascular Accident - 2002 Endocrine Medical History: Reports: Hx Diabetes Mellitus Type 2 GI Medical History: Reports: Hx Gastroesophageal Reflux Disease Musculoskeltal Medical History: Reports Hx Arthritis Past Surgical History: Reports: Hx Hysterectomy, Hx Kidney (Renal Surgery) - adrenal gland tumor removed, Other - Right-sided adrenal gland - Immunizations Immunizations up to date: Yes Hx Diphtheria, Pertussis, Tetanus Vaccination: Yes Hx Pneumococcal Vaccination: 03/02/12 Vertical Provider Document - CONSTITUTIONAL Agree With Documented VS: Yes Exam Limitations: No Limitations General Appearance: No Apparent Distress - INFECTION CONTROL TRAVEL OUTSIDE OF THE [place] IN LAST 30 DAYS: No - HEENT HEENT: Conjuctival Injection, Normocephalic Notes: no fluorescein uptake, eom's intact, IOP 18.95 leftt, 16.[address] Cunningham also checked her eyes since the hx and symptom were perplexing. - NECK Neck: Supple. negative: Lymphadenopathy-Left, Lymphadenopathy-Right - RESPIRATORY Respiratory: Breath Sounds Normal, No Respiratory Distress - CARDIOVASCULAR Cardiovascular: Regular Rate, Regular Rhythm - DERM Integumentary: No Rash Course - Re-evaluation Re-evalutation: 09/24/17 visual acuity 20/70 bilateral eyes - Vital Signs Vital signs: Temp Pulse Resp BP Pulse Ox 98.2 F 72 15 147/90 H 100 09/24/17 18:44 09/24/17 18:44 09/24/17 18:44 09/24/17 18:44 09/24/17 18:44 Discharge - Discharge Clinical Impression: Photosensitivity, Eyelid heaviness Conjunctivitis Qualifiers: Conjunctivitis type: acute Acute conjunctivitis type: unspecified Laterality: bilateral Qualified Code(s): H10.33 - Unspecified acute conjunctivitis, bilateral Condition: Good Disposition: HOME, SELF-CARE Instructions: Conjunctivitis ([facility]), Eyedrop Use ([facility]) Additional Instructions: See Dr. Cunha tomorrow Return to the emergency room any concerns tonight Prescriptions: Besifloxacin HCl [Besivance 0.6% Oph Susp 5 ml] 1 drop OP TID #1 bottle Forms: Return to Work Referrals: SHAHLA YEUNG MD [Primary Care Provider] - Follow up as needed
[2017-09-24 20:56] VITALS: BP 135/91
== END 2017-09-24 20:56 | disposition home or self-care (01) ==
LOC: ER 18:31
DX: H10.33 Unspecified acute conjunctivitis, bilateral (principal); H53.149 Visual discomfort, unspecified; I10 Essential (primary) hypertension; E11.9 Type 2 diabetes mellitus without complications
CPT/HCPCS: 99283

== ENCOUNTER → 2019-01-21 | Outpatient (CLI) | payer MEDICARE, MEDICAID ==
--- NOTE | 2019-01-21 14:49 | WOMENS IMAGING REPORT ---
EXAM DESCRIPTION: 3D SCREENING MAMMO BILAT COMPLETED DATE/TIME: 01/21/2019 10:08 am REASON FOR STUDY: Z12.31 SCREENING MAMMO Z12.31 ENCNTR SCREEN MAMMOGRAM FOR MALIGNANT NEOPLASM OF B RE COMPARISON: 2009 to 2016 EXAM PARAMETERS: Views: Standard craniocaudal and mediolateral oblique views of each breast recorded using digital acquisition and breast tomosynthesis. Read with the assistance of CAD. .[facility] - [employer] Scientist/Engineer Version 9.2 LIMITATIONS: None. FINDINGS: No suspicious masses, suspicious calcifications or architectural distortion. No areas of c oncern. IMPRESSION: NEGATIVE MAMMOGRAM. BIRADS 1. BREAST DENSITY: b. There are scattered areas of fibroglandular density. BIRAD: ASSESSMENT: 1 NEGATIVE RECOMMENDATION: ROUTINE SCREENING COMMENT: The patient has been notified of the results by letter per MQSA requirements. Additional no tification policies are in place for contacting patient with suspicious or incomplete findings. Quality ID #225: The [employer] recommends an annual screening mammogram for women aged 40 years or over. This facility utilizes a reminder system to ensure that all patients receive reminder letters, and/or direct phone calls for appointments. This includes reminders for routine scr eening mammograms, diagnostic mammograms, or other Breast Imaging Interventions when appropriate. Th is patient will be placed in the appropriate reminder system. TECHNICAL DOCUMENTATION: FINDING NUMBER: (1) ASSESSMENT: (1) JOB ID: [id number] [employer]- All Rights Reserved Reading location - IP/workstation name: [email or web address]
== END ==
LOC: WI 09:25
PROVIDERS: ATTEND Physician Assistant
DX: Z12.31 Encounter for screening mammogram for malignant neoplasm of breast (principal)
CPT/HCPCS: 77063; 77067

== ENCOUNTER → 2019-12-22 | Outpatient (CLI) | payer MEDICARE, OTHER ==
[2019-12-22 11:35] VITALS: BP 141/83
--- NOTE | 2019-12-22 11:35 | ER RDC ASSESSMENT REPORT ---
Intake - In the Last 14 days Have you traveled outside [place]?: No Have you been in close contact with someone CONFIRMED: No Worked in Healthcare?: No - Symptoms Subjective Fever(Sophia feverish): No Chills: No Muscule Aches: No Runny Nose: No Sore Throat: No Cough (New or worsening chronic cough): No Shortness of breath: No Nausea or Vomiting: Yes --How many day(s)?: This AM Headache: No Abdominal Pain: No Diarrhea(3 or more loose stools in last 24 hours): No - Do you have any of the following Chronic lung disease: Asthma or emphysema or COPD: No Cystic Fibrosis: No Diabetes: No High Blood Pressure: Yes Cardiovascular Disease: Yes Chronic Kidney Disease: No Chronic Liver Disease: No Chronic blood disorder like Sickle Cell Disease: No Weak immune system due to disease or medication: No Neurologic condition that limits movement: No Developmental delay - Moderate to Severe: No Recent (within past 2 weeks) or current : No Morbid Obesity (>100 pounds over ideal weight): No Obesity Comment: Five Feet 3 inches weight 184 pounds Other Comment: Reports a history of an [place] stroke and history of Jason's disease. - Objective Temperature: 98.3 F Pulse Rate: 80 Respiratory Rate: 20 Blood Pressure: 141/83 O2 Sat by Pulse Oximetry: 95 Objective: Given above, testing performed: If Testing Performed: Test Specimen Type Sent to General - General Information source: Patient Notes: Patient here at [facility] for COVID testing reports feeling nauseated this morning denies being exposed to anybody known positive for COVID. Denies any other symptoms. Patient has not followed up at this point with PCP - Related Data Allergies/Adverse Reactions: No Known Allergies Allergy (Verified 09/24/17 18:33) Past Medical History - General Information source: Patient - Social History Smoking Status: Never Smoker Family History: Reviewed & Not Pertinent, Arthritis, CAD, CVA, DM, Hyperlipidemia, Hypertension, Malignancy, Thyroid Disfunction - Past Medical History Cardiac Medical History: Reports: Hx Heart Attack - 2002, Hx Hypercho lesterolemia, Hx Hypertension - HX OF Denies: Hx Coronary Artery Disease Pulmonary Medical History: Denies: Hx Asthma, Hx Bronchitis, Hx COPD, Hx Pneumonia, Hx Tuberculosis Neurological Medical History: Reports: Hx Cerebrovascular Accident - 2002. Denies: Hx Seizures Endocrine Medical History: Reports: Hx Diabetes Mellitus Type 2 Renal/ Medical History: Denies: Hx Peritoneal Dialysis GI Medical History: Reports: Hx Gastroesophageal Reflux Disease Musculoskeletal Medical History: Reports Hx Arthritis Past Surgical History: Reports: Hx Hysterectomy, Hx Kidney (Renal Surgery) - adrenal gland tumor removed, Other - Right-sided adrenal gland Physical Exam - General General appearance: Appears well, Alert In distress: None Notes: PHYSICAL EXAMINATION: GENERAL: Well-appearing and in no acute distress. HEAD: Atraumatic, normocephalic. EYES: sclera anicteric, conjunctiva are normal. ENT: nares patent. Moist mucous membranes. NECK: Normal range of motion, supple without lymphadenopathy LUNGS: CTAB and equal. No wheezes rales or rhonchi. Resp even and unlabored. Lung sounds clear. HEART: Regular rate and rhythm without murmurs ABDOMEN: Soft, nontender, normal bowel sounds, no guarding. EXTREMITIES: No cyanosis. NEUROLOGICAL: Normal speech. PSYCH: Normal mood, normal affect. SKIN: Warm, Dry, normal turgor, Diagnostic Results Laboratory Results: Patient informed of negative rapid strep and negative rapid flu results. Pending strep culture pending cover testing results. Patient provided instructions regarding COVID to include: As a person under investigation for Covid 19, the [place] department of Health and Human Services, division of public health advises you to adhere to the following guidance until your test results are reported to you. If your test result is positive, you will receive additional information from your provider and your local health department at that time. Remain at home until you are cleared by the health provider or public health authorities. Keep a log of visitors to your home, notify any visitors to your home of your isolation status. If you plan to move to a new address or leave the [facility], notify the local health department in your County. Call your doctor or seek care if you have an urgent medical need. Before seeking medical care, call ahead to get instructions from the provider before arriving at the medical office clinic or hospital. Notify them that you are being tested for the virus that causes Covid 19 so that arrangements can be made, as necessary, to prevent transmission to others in the healthcare setting. Next, notify the local health department in your county. If a medical emergency arises and you need to call 911, inform the first responders that you are being tested for the virus that causes Covid 19. Next, notify the local health department in your county. Patient Education/Counseling Counseling/Education: Patient presents with upper respiratory symptoms worrisome for possible Covid 19. Patient does not have emergency worring symptoms such as difficulty breathing, shortness of breath, chest pain, pressure, confusion or cyanosis. Patient appears suitable for discharge. Instructed to follow-up with PCP today. To ED for persistent or worsening symptoms. Patient's vital signs are stable and patient is nontoxic in appearance. Good return precautions have been discussed with patient, patient verbalized understanding and is agreeable with discharge plan of care at this time. C Discharge - Discharge Clinical Impression: Encounter for screening laboratory testing for COVID-19 virus Condition: Stable Disposition: Home; Selfcare
[2019-12-22 13:09] LABS: A TYPE INFLUENZA AG NEGATIVE (NEGATIVE); B INFLUENZA AG NEGATIVE (NEGATIVE)
== END ==
LOC: RDC 10:46
PROVIDERS: ATTEND Nurse Practitioner Family
DX: R11.0 Nausea (principal); Z20.828 Contact with and (suspected) exposure to other viral communicable diseases; I10 Essential (primary) hypertension; E78.00 Pure hypercholesterolemia, unspecified; E24.9 Cushing's syndrome, unspecified; I25.2 Old myocardial infarction
CPT/HCPCS: 87070; 87880; 87804; 99201; U0003; G0463; C9803; 87635; 99211

== ENCOUNTER → 2020-01-07 | Outpatient (CLI) | payer MEDICAID, MEDICARE ==
--- NOTE | 2020-01-10 16:35 | WOMENS IMAGING REPORT ---
EXAM DESCRIPTION: 3D SCREENING MAMMO BILAT IMAGES COMPLETED DATE/TIME: 01/07/2020 2:54 pm REASON FOR STUDY: Z12.31 ENCOUNTER FOR SCREENING MAMMOGRAM FOR MALIGNANT NEOPLASM OF BREAST Z12.31 ENCNTR SCREEN MAMMOGRAM FOR MALIGNANT NEOPLASM OF HEMA COMPARISON: 2015 to 2018 EXAM PARAMETERS: Views: Standard craniocaudal and mediolateral oblique views of each breast recorded using digital acquisition and breast tomosynthesis. Read with the assistance of CAD. .ON LICENSE OF [facility] [place] [employer] Specialist Version 9.2 LIMITATIONS: None. FINDINGS: No suspicious masses, suspicious calcifications or architectural distortion. No areas of c oncern. IMPRESSION: NEGATIVE MAMMOGRAM. BIRADS 1. BREAST DENSITY: a. The breasts are almost entirely fatty. BIRAD: ASSESSMENT: 1 NEGATIVE RECOMMENDATION: ROUTINE SCREENING COMMENT: The patient has been notified of the results by letter per MQSA requirements. Additional no tification policies are in place for contacting patient with suspicious or incomplete findings. Quality ID #225: The [employer] recommends an annual screening mammogram for women aged 40 years or over. This facility utilizes a reminder system to ensure that all patients receive reminder letters, and/or direct phone calls for appointments. This includes reminders for routine scr eening mammograms, diagnostic mammograms, or other Breast Imaging Interventions when appropriate. Th is patient will be placed in the appropriate reminder system. TECHNICAL DOCUMENTATION: FINDING NUMBER: (1) ASSESSMENT: (1) JOB ID: [id number] 2010 [employer]- All Rights Reserved Reading location - IP/workstation name: [email or web address]
== END ==
LOC: WI 14:20
PROVIDERS: ATTEND Physician Assistant
DX: Z12.31 Encounter for screening mammogram for malignant neoplasm of breast (principal)
CPT/HCPCS: 77063; 77067